=== PATIENT | male | born 1980 ===

== ENCOUNTER 2021-09-15 10:32 | Emergency (ER) | payer MEDICAID ==
[~2021-09-15] VITALS: Ht 172.7 cm; Wt 95.5 kg
[2021-09-15 10:59] VITALS: BP 125/74
[2021-09-15 13:08] LABS: COVID AG,FIA SOURCE NASOPHARYNGEAL
== END 2021-09-15 15:14 | disposition home or self-care (01) ==
LOC: EMS 10:32
DX: U07.1 COVID-19 (principal)
CPT/HCPCS: 87426; 99283; U0003